=== PATIENT | female | born 1965 | race Caucasian/White ===

== ENCOUNTER 2020-04-17 17:48 | Emergency (ER) | payer OTHER, SELFPAY ==
--- NOTE | ~2020-04-17 | XR_ITS ---
EXAMINATION: XR foot RT min 3V DATE: 04/17/2020 18:25 INDICATION: Pain at the ball of the right foot after stepping on a toy. TECHNIQUE: Dorsoplantar, two oblique and lateral views of the right foot were obtained. COMPARISON: None. FINDINGS: Alignment is normal. Irregular contour at the base of the third middle phalanx with widening of the l ateral side of the proximal interphalangeal joint space which appears chronic suggestive of an old he aled fracture. No other lesions suspicious for acute fracture. Mild polyarticular osteoarthritis at t he navicular cuneiform, first metatarsophalangeal and several tarsal metatarsal and interphalangeal j oints. IMPRESSION: 1. Chronic appearing deformity at the base of the right third middle phalanx suggestive of old fractu re deformity. Correlate with clinical history. 2. No other acute osseous abnormality. 3. Mild polyarticular osteoarthritis throughout the right foot. Reviewed, dictated and finalized at location A. [employer] IMPRESSION: 1. Chronic appearing deformity at the base of the right third middle phalanx sahu ggestive of old fracture deformity. Correlate with clinical history. 2. No other acute osseous abnormality. 3. Mild polyarticular osteoarthritis throughout the right foot.
[2020-04-17 18:09] VITALS: BP 220/104; PULSE 88; RESP 20; TEMP 36.6; O2SAT 100
--- NOTE | 2020-04-17 18:20 | PC.NURSE ---
Pt with elevated bp at 220/104 upon recheck and reported to provider. Pt reports is starting with some headache.
--- NOTE | 2020-04-17 18:58 | ED.LOWEXIN ---
HPI - Extremity Injury (Lower) General Chief Complaint: Extremity Injury, Lower Stated Complaint: Extremity Injury, Lower Time Seen by Provider: 04/17/20 18:18 Source: patient and RN notes reviewed Mode of arrival: ambulatory Limitations: no limitations History of Present Illness HPI Narrative: Patient presents today complaining of an injury to her right foot. States that at 1 PM this afternoon she stepped on a hard plastic toy, injuring the ball of her foot and her third toe. At the time of injury, she was wearing some house slippers. She has been ambulatory with increased pain. Currently rates her pain 8/10. Denies numbness or tingling. She did ice the foot, but did not take any medication for symptoms prior to arrival. On arrival, patient's blood pressure was 220/104. She does have history of hypertension and takes her lisinopril at night. She reports no missed doses. States she does have a headache that she currently rates 5/10. States the headache developed between 430 and 530 this afternoon. Denies vision changes, dizziness, lightheadedness, nausea or vomiting. Related Data Allergies Allergy/AdvReac Type Severity Reaction Status Date / Time No Known Allergies Allergy Verified 04/17/20 18:12 Review of Systems Review of Systems: Narrative: CONSTITUTIONAL: Denies body aches, fever, chills, or sweats. EYES: Denies visual changes, redness, or discharge. ENT: Denies rhinorrhea, congestion, sore throat, or otalgia. CARDIOVASCULAR: Denies chest pain, palpitations, or edema. RESPIRATORY: Denies cough or dyspnea. GASTROINTESTINAL: Denies abdominal pain, nausea, vomiting, or diarrhea. GENITOURINARY: Denies dysuria or hematuria. SKIN: Denies rash, itching, or wounds. MUSCULOSKELETAL: Denies back pain, or myalgia. + Right foot injury NEUROLOGIC: Denies headache, numbness, tingling, or weakness. PSYCH: Denies depression or anxiety. [facility] Past Medical History Medical History Hypercalcemia Hypertension Vitamin deficiency Family History Family History Mother Family history of thyroid disease Hypertension Family history of hypothyroidism Father Family history of heart disease in male family member before age 55 Social History Social History Smoking status: Never smoker Alcohol intake: current Drinks per week: 4 Substance use: never Comments At time of signature, I have reviewed and agree with nursing past medical, surgical, social and family history unless otherwise noted. Please see nursing chart for further information. There is no relevant family history pertinent to the presenting complaint Exam Narrative: Exam Narrative: GENERAL: Well-appearing, well-nourished, and in no acute distress. HEAD: Normocephalic, atraumatic. EYES: EOMI. No redness or drainage. Conjunctivae normal. ENT: Mucous membranes pink and moist. NECK: Normal AROM. CHEST: No respiratory distress. EXTREMITIES: Tenderness to the dorsum of the foot at the base of the third and fourth toes with faint ecchymosis. No tenderness to the associated area on the dorsum of the foot. Tenderness to the third toe with ecchymosis and mild edema. No additional tenderness to the foot. Distal sensation intact in all toes. Capillary refill normal. Pedal pulse normal. Full range of motion of all toes with increased pain in the third toe. SKIN: Warm, dry, no rash. Capillary refill normal. Normal skin turgor. NEURO: No focal deficits. Alert and oriented x3. Gait steady. PSYCH: Normal affect. No signs of depression or anxiety. Course Vital Signs Vital signs: Vital Signs Temperature 97.8 F 04/17/20 18:09 Pulse Rate 88 04/17/20 18:09 Respiratory Rate 20 04/17/20 18:09 Blood Pressure 220/104 H 04/17/20 18:09 Pulse Oximetry 100 04/17/20 18:09
[2020-04-17 19:03] VITALS: BP 216/104
== END 2020-04-17 19:23 | disposition short-term general hospital (02) ==
PROVIDERS: Emergency Provider Nurse Practitioner; PCP Internal Medicine
DX: S92.524A Nondisplaced fracture of middle phalanx of right lesser toe(s), initial encounter for closed fracture (principal); W22.8XXA Striking against or struck by other objects, initial encounter; I10 Essential (primary) hypertension
CPT/HCPCS: 73630; 99214; G0463